=== PATIENT | male | born 2000 | race Two or more races ===

== ENCOUNTER 2018-01-12 14:42 | Emergency (ER) | payer OTHER ==
[~2018-01-12] VITALS: Ht 170.2 cm; Wt 66.9 kg
[2018-01-12 16:09] LABS: BASOPHIL % 0.2 % (0-2); PLATELET COUNT 340 x10^3mcL (130-400); RED CELL DISTRIBUTION WIDTH 14.6 % (11.5-14.5)
[2018-01-12 16:25] LABS: CALCIUM 8.9 mg/dL (8.5-10.1); CARBON DIOXIDE 28.9 mmol/L (21-32); CHLORIDE SERUM 103 mmol/L (98-107); GFR1 > 60 mL/min; GLUCOSE SERUM 90 mg/dL (74-106); POTASSIUM SERUM 3.8 mmol/L (3.5-5.1); SODIUM SERUM 141 mmol/L (136-145)
[2018-01-12 16:29] LABS: ALBUMIN 4.1 g/dL (3.4-5.0); ALKALINE PHOSPHATASE 92 U/L (46-116); ALT/SGPT 13 U/L (16-63); AST/SGOT 10 U/L (15-37); BILIRUBIN TOTAL 0.37 mg/dL (0.20-1.00); TOTAL PROTEIN, SERUM 7.9 g/dL (6.4-8.2)
[2018-01-12 16:59] LABS: AMPHETAMINE QUAL UR POSITIVE (See below)
[2018-01-12 17:42] VITALS: BP 138/79
== END 2018-01-12 17:42 | disposition home or self-care (01) ==
LOC: ED 14:42
PROVIDERS: Emergency Medicine
DX: F41.9 Anxiety disorder, unspecified (principal); F15.10 Other stimulant abuse, uncomplicated
CPT/HCPCS: 36415; G0480

== ENCOUNTER 2018-08-02 07:50 | Emergency (ER) | payer OTHER ==
[~2018-08-02] VITALS: Ht 170.2 cm; Wt 70.8 kg
[2018-08-02 07:59] VITALS: BP 123/80; Ht 170.2 cm; Wt 70.8 kg
== END 2018-08-02 10:30 | disposition home or self-care (01) ==
LOC: ED 07:50
DX: S90.32XA Contusion of left foot, initial encounter (principal); F41.9 Anxiety disorder, unspecified; X58.XXXA Exposure to other specified factors, initial encounter; Y93.89 Activity, other specified; Y92.89 Other specified places as the place of occurrence of the external cause; Y99.8 Other external cause status

== ENCOUNTER 2019-04-10 23:46 | Emergency (ER) | payer OTHER ==
[~2019-04-10] VITALS: Ht 172.7 cm; Wt 75.4 kg
[2019-04-10 23:51] VITALS: Ht 172.7 cm; Wt 75.4 kg
[2019-04-11 01:16] VITALS: BP 117/72
== END 2019-04-11 01:10 | disposition home or self-care (01) ==
LOC: ED 23:46
DX: S43.014A Anterior dislocation of right humerus, initial encounter (principal); S43.034A Inferior dislocation of right humerus, initial encounter; F41.9 Anxiety disorder, unspecified; X58.XXXA Exposure to other specified factors, initial encounter; Y93.89 Activity, other specified; Y92.89 Other specified places as the place of occurrence of the external cause; Y99.8 Other external cause status
CPT/HCPCS: J2001; J3490; Q0092